=== PATIENT | female | born 1940 | race Caucasian/White ===

== ENCOUNTER 2017-04-15 13:33 | Inpatient (IN) ==
[2017-04-15] MEDS ORDERED: Acetaminophen 325 MG TABLET PO PRN (16:51)
[2017-04-15] MEDS: *HR* HYDROcodone/Acet 5/325 mg TABLET PO PRN ×2 (17:31→23:50)
[2017-04-15] MEDS: Sennosides/Docusate Sodium TABLET PO SCH (20:51)
[2017-04-16] MEDS: *HR* Enoxaparin 40 MG/0.4 ML SYRINGE SQ SCH (06:34)
[2017-04-16] MEDS: Sennosides/Docusate Sodium TABLET PO SCH ×2 (08:00→20:11)
[2017-04-16] MEDS ORDERED: Ascorbic Acid 500 MG TABLET PO SCH (09:00)
[2017-04-16] MEDS: *HR* HYDROcodone/Acet 5/325 mg TABLET PO PRN ×2 (14:29→20:13)
--- NOTE | 2017-04-16 15:09 | Internal Med History&Physical ---
Date of Encounter: 04/16/17 Time of Encounter: 14:40 Assessment and Plan (1) Patella fracture Current visit: No Status: Acute Will give scheduled analgesics in addition to prn analgesics. Advanced therapy as tolerated. Qualifiers: Encounter type: initial encounter Fracture type: closed Fracture morphology: unspecified fracture morphology Fracture alignment: displaced Laterality: right Qualified Code(s): S82.001A - Unspecified fracture of right patella, initial encounter for closed fracture (2) Proximal humeral fracture Current visit: No Status: Acute We will give analgesics as above and advance therapy as recommended by orthopedist. Qualifiers: Encounter type: initial encounter Fracture type: closed Fracture morphology: unspecified fracture morphology Laterality: right Qualified Code (s): S42.201A - Unspecified fracture of upper end of right humerus, initial encounter for closed fracture (3) HTN (hypertension) Current visit: No Status: Chronic Continue Lopressor and monitor blood pressures. Qualifiers: Hypertension type: essential hypertension Qualified Code(s): I10 - Essential (primary) hypertension (4) UTI (urinary tract infection) Current visit: No Status: Acute Urine culture shows Proteus with broad sensitivity. Continue Cipro and add lactobacillus. Qualifiers: Urinary tract infection type: site unspecified Qualified Code(s): N39.0 - Urinary tract infection, site not specified; R31.9 - Hematuria, unspecified; R31.9 - Hematuria, unspecified (5) Hyperglycemia Current visit: Yes Status: Acute Will check hemoglobin A1c in a.m. (6) Thrombocytopenia Current visit: Yes Status: Acute Review of archived lab shows thrombocytopenia present on all CBCs since December 2013. I note MPV is slightly enlarged. 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 Will continue to monitor labs without referral to hematology/oncology for now. Internal Medicine - H&P: HPI Chief complaint: Right humerus and patella fracture Admitted From: Hospital to Hospital Transfer Plans for Post Hospital Care: Home History of present illness: Ms. Silverio is a 76 year old female who was hospitalized at [facility] April 12 after experiencing a fall at home resulting in right patella and right proximal humerus fracture. She was treated nonoperatively and admitted to [facility] swing bed for ongoing therapy. Her muscle skeletal history is pertinent for DJD, right carpal tunnel syndrome surgery, and right wrist fracture repair. She has no known gout or other bone joint or muscle disorders. Past Med Surg Social Fam HX - Past Medical History Medical history: cancer, CVA, hypertension, migraine Psychiatric history: depression - Past Surgical History Surgical History: breast surgery, orthopedic, other, thyroidectomy - Social History Smoking Status: Never smoker Smokeless Tobacco Status: No Alcohol use: none Drug use: none - Family History Daughter Hx Family Endocrine Disorder: Yes Internal Medicine - H&P: Meds Meloxicam [Mobic] 7.5 mg PO Q12H PRN 09/11/15 [History] Atorvastatin [Lipitor] 40 mg PO HS 04/12/17 [History] BuPROPion [Wellbutrin] 75 mg PO BID 04/12/17 [History] Metoprolol [Lopressor] 50 mg PO BID 04/12/17 [History] Sertraline [Zoloft] 100 mg PO DAILY 04/12/17 [History] Acetaminophen [Tylenol] 650 mg PO Q6HR PRN tablet 04/15/17 [Rx] Ciprofloxacin HCl [Cipro] 500 mg PO BID 3 Days #6 tablet 04/15/17 [Rx] Enoxaparin [Lovenox] 40 mg SQ 0600 syringe 04/15/17 [Rx] HYDROcodone/Acet 5/325 mg [Phelps 5-325 mg] 1 tab PO Q4HR PRN #30 tablet [Rx] Sennosides/Docusate Sodium [Senna Plus] 1 each PO BID tablet 04/15/17 [Rx] 3 Allergy/AdvReac Type Severity Reaction Status Date / Time No Known Allergies Allergy Verified 01/11/15 11:28 All Systems PM: A 10-system review of systems was performed and is negative for pertinent findings except as documented above in the HPI. Review of systems: Gen.: She states her weight has been stable the past few months Cardiovascular: She has history of hypertension but denies [place] heart failure angina DVT or pulmonary embolus. She had an echocardiogram 2013 which showed LVEF 65% and indeterminate diastolic function. There is minimal LAE at 4.10 cm. Respiratory: She is a lifelong nonsmoker and has no known chronic lung disease GI: She denies disorders of her liver gallbladder or exocrine pancreas : She has urge incontinence. She states she has "dropped female organs" and wears a pessary occasionally. Neurologic: She had 1.5 cm left periventricular white matter infarct February 2014 with minimal permanent neurologic deficit. She denies seizures. Endocrine: She has hyperlipidemia but no known diabetes or thyroid disease Hematology/oncology: She had breast cancer 2000 right mastectomy which was curative. She has no anemia or other blood disorders Psychiatric: She has anxiety and depression denies other mental health issues Muscle skeletal: As per history of present illness. - Constitutional Vitals: Temp Pulse Resp BP Pulse Ox 98.3 F 72 24 136/76 95 04/16/17 06:38 04/16/17 14:27 04/16/17 14:27 04/16/17 14:27 04/16/17 14:27 Exam: Gen.: She is a well-developed well-nourished female who appears in no acute distress at rest. She complains of significant pain on minimal movement. HEENT: She has resolving ecchymosis and superficial lacerations of her right forehead area. Eyes: EOMI. There is no scleral icterus. Mouth: Mucosa is moist. Neck: Supple and nontender. There is no thyromegaly or adenopathy noted. Heart: Regular without murmurs gallops or ectopics Lungs: No wheezes or crackles are heard. Abdomen: Soft and nontender. No masses or guarding are noted. Extremities: The right arm is in an immobilizer sling. The right leg is an immobilizer brace. There is ecchymoses of the right patellar area visible through the straps. Dorsalis pedis and posterior tibial pulses are trace to 1+ palpable bilaterally. She is wearing a NATALEE hose on her left lower leg which I did not remove. She has minimal DJD changes of her left hand. Neurologic: Mental status: She is talkative and a good historian. Cranial nerves: Smile is symmetric. Forehead wrinkles bilaterally. Tongue protrudes midline. EOMI. Motor: There is no pronator drift. Cerebellar: finger to nose is intact bilaterally. Skin: Warm and dry - VTE Documentation of Mechanical Device: Intermittent pneumatic compression device
[2017-04-16] MEDS ORDERED: *HR* FentaNYL PATCH 12 MCG PATCH TD SCH (15:30)
[2017-04-16] MEDS ORDERED: MOM Conc 10 ML UD.LIQ PO SCH (15:30)
[2017-04-16] MEDS: Acetaminophen 325 MG TABLET PO SCH ×2 (17:10→23:56)
[2017-04-17] MEDS: Acetaminophen 325 MG TABLET PO SCH ×3 (04:47→17:39)
[2017-04-17] MEDS: *HR* HYDROcodone/Acet 5/325 mg TABLET PO PRN (04:48)
[2017-04-17] MEDS: *HR* Enoxaparin 40 MG/0.4 ML SYRINGE SQ SCH (04:49)
[2017-04-17 05:39] LABS: Basophils % 0.2 %; Eosinophils # 0.2 K/mcL (0.0-0.6); Hematocrit 36.2 % (35.3-44.9); Hemoglobin 11.6 g/dL (11.5-15.4); Immature Granulocytes % 0.2 % (0-4); Lymphocytes # 1.4 K/mcL (0.6-4.6); Lymphocytes % 24.7 %; Mean Corpuscular Hemoglobin 28.4 pg (28.0-33.3); Mean Corpuscular Volume 88.5 fL (83.0-100.0); Mean Platelet Volume 12.1 fL (9.4-12.4); Monocytes # 0.5 K/mcL (0.0-1.3); Monocytes % 8.6 %; Neutrophils # 3.4 K/mcL (1.6-8.9); Platelet Count 110 K/mcL (140-400); Red Blood Count 4.09 M/mcL (3.82-4.97); Red Cell Distribution Width 14.9 % (11.5-14.5); Segmented Neutrophils % 62.3 %
[2017-04-17 05:57] LABS: BUN/Creatinine Ratio 35 (6-26); Blood Urea Nitrogen 22 mg/dL (8-23); Calcium 8.9 mg/dL (8.6-10.3); Carbon Dioxide 28 mEq/L (23-29); Chloride 105 mEq/L (98-107); Glucose 106 mg/dL (70-105); Osmolality,Calculated 294 (280-300); Sodium 140 mEq/L (136-145); eGFR For African Americans > 60 (> 60); eGFR For Non-African Americans > 60 (> 60)
[2017-04-17] MEDS: Sennosides/Docusate Sodium TABLET PO SCH ×2 (07:56→20:19)
[2017-04-17 09:53] LABS: Hemoglobin A1C 5.1 %
--- NOTE | 2017-04-17 10:29 | Internal Med Progress Note ---
Date of Encounter: 04/17/17 Time of Encounter: 10:20 - Assessment and plan (1) Patella fracture Current Visit: No Status: Acute Assessment and plan: April 17. Continue present analgesic regimen. Continue therapy. Qualifiers: Encounter type: initial encounter Fracture type: closed Fracture morphology: unspecified fracture morphology Fracture alignment: displaced Laterality: right Qualified Code(s): S82.001A - Unspecified fracture of right patella, initial encounter for closed fracture (2) Proximal humeral fracture Current Visit: No Status: Acute Assessment and plan: April 17. Continue present analgesic regimen. Continue therapy. Qualifiers: Encounter type: initial encounter Fracture type: closed Fracture morphology: unspecified fracture morphology Laterality: right Qualified Code (s): S42.201A - Unspecified fracture of upper end of right humerus, initial encounter for closed fracture (3) HTN (hypertension) Current Visit: No Status: Chronic Assessment and plan: April 17. Continue Lopressor and monitor blood pressure. Qualifiers: Hypertension type: essential hypertension Qualified Code(s): I10 - Essential (primary) hypertension (4) UTI (urinary tract infection) Current Visit: No Status: Acute Assessment and plan: April 17. Discontinue Cipro and lactobacillus since she has now completed a three-day course Qualifiers: Urinary tract infection type: site unspecified Qualified Code(s): N39.0 - Urinary tract infection, site not specified; R31.9 - Hematuria, unspecified; R31.9 - Hematuria, unspecified (5) Hyperglycemia Current Visit: Yes Status: Acute Assessment and plan: April 17. Hemoglobin A1c acceptable at 5.1%. (6) Thrombocytopenia Current Visit: Yes Status: Acute Assessment and plan: April 17. Platelet count stable at 110,000. - Subjective Interval history: April 17. She has no new complaints. - Constitutional Vitals: Temp Pulse Resp BP Pulse Ox 98.4 F 60 18 135/70 95 04/17/17 06:27 04/17/17 08:02 04/17/17 06:27 04/17/17 08:02 04/17/17 08:02 Exam: She is resting comfortably in bed and appears in no acute distress. Her affect is bright and cheerful. I reviewed her medications and lab results. Internal Medicine: Result - Labs CBC & Chem 7: 04/17/17 05:03 04/17/17 05:03 Labs: Short CBC 04/17/17 Range/Units 05:03 WBC 5.5 (4.3-11.1) K/mcL Hgb 11.6 (11.5-15.4) g/dL Hct 36.2 (35.3-44.9) % Plt Count 110 L (140-400) K/mcL Neutrophils # 3.4 (1.6-8.9) K/mcL BMP 04/17/17 05:03 Sodium 140 Potassium 4.0 Chloride 105 Carbon Dioxide 28 BUN 22 Creatinine 0.62 Glucose 106 H Calcium 8.9 - VTE Documentation of Mechanical Device: Intermittent pneumatic compression device Consult Discharge Plan - Plan Referrals: Felipe Cerrato DO [Primary Care Provider] - 1 week
[2017-04-18] MEDS: Acetaminophen 325 MG TABLET PO SCH ×5 (01:55→22:50)
[2017-04-18] MEDS: *HR* HYDROcodone/Acet 5/325 mg TABLET PO PRN ×2 (04:06→22:50)
[2017-04-18] MEDS: *HR* Enoxaparin 40 MG/0.4 ML SYRINGE SQ SCH (04:24)
[2017-04-18] MEDS: Sennosides/Docusate Sodium TABLET PO SCH ×2 (08:31→20:34)
[2017-04-18] MEDS ORDERED: MOM Conc 10 ML UD.LIQ PO PRN (10:37)
--- NOTE | 2017-04-18 12:10 | Internal Med Progress Note ---
Date of Encounter: 04/18/17 Time of Encounter: 12:04 - Assessment and plan (1) Patella fracture Current Visit: No Status: Acute Assessment and plan: April 17. Continue present analgesic regimen. Continue therapy. Qualifiers: Encounter type: initial encounter Fracture type: closed Fracture morphology: unspecified fracture morphology Fracture alignment: displaced Laterality: right Qualified Code(s): S82.001A - Unspecified fracture of right patella, initial encounter for closed fracture (2) Proximal humeral fracture Current Visit: No Status: Acute Assessment and plan: April 17. Continue present analgesic regimen. Continue therapy. Qualifiers: Encounter type: initial encounter Fracture type: closed Fracture morphology: unspecified fracture morphology Laterality: right Qualified Code (s): S42.201A - Unspecified fracture of upper end of right humerus, initial encounter for closed fracture (3) HTN (hypertension) Current Visit: No Status: Chronic Assessment and plan: April 17. Continue Lopressor and monitor blood pressure. April 18. Blood pressures are satisfactory. Continue Lopressor. Qualifiers: Hypertension type: essential hypertension Qualified Code(s): I10 - Essential (primary) hypertension (4) UTI (urinary tract infection) Current Visit: No Status: Acute Assessment and plan: April 17. Discontinue Cipro and lactobacillus since she has now completed a three-day course Qualifiers: Urinary tract infection type: site unspecified Qualified Code(s): N39.0 - Urinary tract infection, site not specified; R31.9 - Hematuria, unspecified; R31.9 - Hematuria, unspecified (5) Hyperglycemia Current Visit: Yes Status: Acute Assessment and plan: April 17. Hemoglobin A1c acceptable at 5.1%. (6) Thrombocytopenia Current Visit: Yes Status: Acute Assessment and plan: April 17. Platelet count stable at 110,000. - Subjective Interval history: April 17. She has no new complaints. April 18. She has no new complaints and states her pain is slightly less. - Constitutional Vitals: Temp Pulse Resp BP Pulse Ox 98.3 F 65 16 127/74 94 04/17/17 18:43 04/18/17 08:29 04/17/17 18:43 04/18/17 08:29 04/17/17 18:43 Exam: She is resting comfortably in bed and appears in no acute distress. Her affect is bright and cheerful. I reviewed her medications and lab results. Internal Medicine: Result - Labs CBC & Chem 7: 04/17/17 05:03 04/17/17 05:03 - VTE Documentation of Mechanical Device: Intermittent pneumatic compression device Consult Discharge Plan - Plan Referrals: Felipe Cerrato DO [Primary Care Provider] - 1 week
[2017-04-19] MEDS: Acetaminophen 325 MG TABLET PO SCH ×3 (06:15→20:39)
[2017-04-19] MEDS: *HR* Enoxaparin 40 MG/0.4 ML SYRINGE SQ SCH (06:16)
[2017-04-19] MEDS: Sennosides/Docusate Sodium TABLET PO SCH ×2 (08:00→20:40)
[2017-04-19] MEDS: *HR* HYDROcodone/Acet 5/325 mg TABLET PO PRN ×2 (08:00→20:40)
[2017-04-19] MEDS: *HR* FentaNYL PATCH 12 MCG PATCH TD SCH (12:33)
[2017-04-20] MEDS: Acetaminophen 325 MG TABLET PO SCH ×4 (06:10→18:13)
[2017-04-20] MEDS: *HR* Enoxaparin 40 MG/0.4 ML SYRINGE SQ SCH (06:11)
[2017-04-20] MEDS: Sennosides/Docusate Sodium TABLET PO SCH ×2 (08:36→21:32)
[2017-04-20] MEDS: *HR* HYDROcodone/Acet 5/325 mg TABLET PO PRN ×3 (08:36→21:31)
--- NOTE | 2017-04-20 19:59 | Internal Med Progress Note ---
Date of Encounter: 04/20/17 Time of Encounter: 19:50 - Assessment and plan (1) Patella fracture Current Visit: No Status: Acute Assessment and plan: April 17. Continue present analgesic regimen. Continue therapy. Qualifiers: Encounter type: initial encounter Fracture type: closed Fracture morphology: unspecified fracture morphology Fracture alignment: displaced Laterality: right Qualified Code(s): S82.001A - Unspecified fracture of right patella, initial encounter for closed fracture (2) Proximal humeral fracture Current Visit: No Status: Acute Assessment and plan: April 17. Continue present analgesic regimen. Continue therapy. Qualifiers: Encounter type: initial encounter Fracture type: closed Fracture morphology: unspecified fracture morphology Laterality: right Qualified Code (s): S42.201A - Unspecified fracture of upper end of right humerus, initial encounter for closed fracture (3) HTN (hypertension) Current Visit: No Status: Chronic Assessment and plan: April 17. Continue Lopressor and monitor blood pressure. April 18. Blood pressures are satisfactory. Continue Lopressor. Qualifiers: Hypertension type: essential hypertension Qualified Code(s): I10 - Essential (primary) hypertension (4) UTI (urinary tract infection) Current Visit: No Status: Acute Assessment and plan: April 17. Discontinue Cipro and lactobacillus since she has now completed a three-day course Qualifiers: Urinary tract infection type: site unspecified Qualified Code(s): N39.0 - Urinary tract infection, site not specified; R31.9 - Hematuria, unspecified; R31.9 - Hematuria, unspecified (5) Hyperglycemia Current Visit: Yes Status: Acute Assessment and plan: April 17. Hemoglobin A1c acceptable at 5.1%. (6) Thrombocytopenia Current Visit: Yes Status: Acute Assessment and plan: April 17. Platelet count stable at 110,000. - Subjective Interval history: April 17. She has no new complaints. April 18. She has no new complaints and states her pain is slightly less. April 20. She has no new complaints. - Constitutional Vitals: Temp Pulse Resp BP Pulse Ox 98.4 F 63 18 147/88 94 04/20/17 07:37 04/20/17 07:37 04/20/17 07:37 04/20/17 07:37 04/20/17 07:37 Exam: She is resting comfortably in bed and appears in no acute distress. Her affect is bright and cheerful. She answers questions appropriately with short answers. Legs show no edema. I reviewed her medications and lab results. Internal Medicine: Result - Labs CBC & Chem 7: 04/17/17 05:03 04/17/17 05:03 - VTE Documentation of Mechanical Device: Intermittent pneumatic compression device Consult Discharge Plan - Plan Referrals: Felipe Cerrato DO [Primary Care Provider] - 1 week
[2017-04-21] MEDS: Acetaminophen 325 MG TABLET PO SCH ×4 (00:03→17:46)
[2017-04-21] MEDS: *HR* Enoxaparin 40 MG/0.4 ML SYRINGE SQ SCH (06:41)
[2017-04-21] MEDS: Sennosides/Docusate Sodium TABLET PO SCH (09:24)
[2017-04-21] MEDS: *HR* HYDROcodone/Acet 5/325 mg TABLET PO PRN (14:49)
[2017-04-22] MEDS: Acetaminophen 325 MG TABLET PO SCH ×4 (01:17→20:19)
[2017-04-22] MEDS: *HR* Enoxaparin 40 MG/0.4 ML SYRINGE SQ SCH (06:49)
[2017-04-22] MEDS: Sennosides/Docusate Sodium TABLET PO SCH (10:13)
[2017-04-22] MEDS: *HR* FentaNYL PATCH 12 MCG PATCH TD SCH (16:04)
[2017-04-23] MEDS: Acetaminophen 325 MG TABLET PO SCH ×4 (06:38→17:50)
[2017-04-23] MEDS: *HR* Enoxaparin 40 MG/0.4 ML SYRINGE SQ SCH (06:39)
[2017-04-23] MEDS: Sennosides/Docusate Sodium TABLET PO SCH (09:27)
[2017-04-23] MEDS: *HR* HYDROcodone/Acet 5/325 mg TABLET PO PRN ×2 (15:53→21:27)
[2017-04-24] MEDS: Acetaminophen 325 MG TABLET PO SCH ×4 (01:02→17:33)
[2017-04-24] MEDS: *HR* Enoxaparin 40 MG/0.4 ML SYRINGE SQ SCH (06:45)
[2017-04-24] MEDS: Sennosides/Docusate Sodium TABLET PO SCH (09:19)
--- NOTE | 2017-04-24 15:00 | Internal Med Progress Note ---
Date of Encounter: 04/24/17 Time of Encounter: 14:50 - Assessment and plan (1) Patella fracture Current Visit: No Status: Acute Assessment and plan: April 17. Continue present analgesic regimen. Continue therapy. Qualifiers: Encounter type: initial encounter Fracture type: closed Fracture morphology: unspecified fracture morphology Fracture alignment: displaced Laterality: right Qualified Code(s): S82.001A - Unspecified fracture of right patella, initial encounter for closed fracture (2) Proximal humeral fracture Current Visit: No Status: Acute Assessment and plan: April 17. Continue present analgesic regimen. Continue therapy. Qualifiers: Encounter type: initial encounter Fracture type: closed Fracture morphology: unspecified fracture morphology Laterality: right Qualified Code (s): S42.201A - Unspecified fracture of upper end of right humerus, initial encounter for closed fracture (3) HTN (hypertension) Current Visit: No Status: Chronic Assessment and plan: April 17. Continue Lopressor and monitor blood pressure. April 18. Blood pressures are satisfactory. Continue Lopressor. Qualifiers: Hypertension type: essential hypertension Qualified Code(s): I10 - Essential (primary) hypertension (4) UTI (urinary tract infection) Current Visit: No Status: Acute Assessment and plan: April 17. Discontinue Cipro and lactobacillus since she has now completed a three-day course Qualifiers: Urinary tract infection type: site unspecified Qualified Code(s): N39.0 - Urinary tract infection, site not specified; R31.9 - Hematuria, unspecified; R31.9 - Hematuria, unspecified (5) Hyperglycemia Current Visit: Yes Status: Acute Assessment and plan: April 17. Hemoglobin A1c acceptable at 5.1%. (6) Thrombocytopenia Current Visit: Yes Status: Acute Assessment and plan: April 17. Platelet count stable at 110,000. - Subjective Interval history: April 17. She has no new complaints. April 18. She has no new complaints and states her pain is slightly less. April 20. She has no new complaints. April 24. She has no new complaints and states she feels better overall. - Constitutional Vitals: Temp Pulse Resp BP Pulse Ox 98.2 F 63 14 129/66 93 04/24/17 06:52 04/24/17 06:52 04/24/17 06:52 04/24/17 06:52 04/24/17 06:52 Exam: She is resting in bed and appears in no acute distress. Her affect is bright and cheerful. She is appropriate in conversation. I reviewed her medications and lab results. Internal Medicine: Result - Labs CBC & Chem 7: 04/17/17 05:03 04/17/17 05:03 - VTE Documentation of Mechanical Device: Intermittent pneumatic compression device Consult Discharge Plan - Plan Referrals: Felipe Cerrato DO [Primary Care Provider] - 1 week
[2017-04-25] MEDS: Acetaminophen 325 MG TABLET PO SCH ×4 (06:51→18:39)
[2017-04-25] MEDS: *HR* Enoxaparin 40 MG/0.4 ML SYRINGE SQ SCH (06:51)
[2017-04-25] MEDS: Sennosides/Docusate Sodium TABLET PO SCH (08:36)
[2017-04-25] MEDS: *HR* FentaNYL PATCH 12 MCG PATCH TD SCH (13:21)
[2017-04-26] MEDS: Acetaminophen 325 MG TABLET PO SCH ×4 (06:49→17:36)
[2017-04-26] MEDS: *HR* Enoxaparin 40 MG/0.4 ML SYRINGE SQ SCH (06:49)
[2017-04-26] MEDS: Sennosides/Docusate Sodium TABLET PO SCH (09:26)
[2017-04-27 05:17] LABS: Basophils % 0.4 %; Eosinophils # 0.2 K/mcL (0.0-0.6); Eosinophils % 4.4 %; Hematocrit 35.3 % (35.3-44.9); Hemoglobin 11.4 g/dL (11.5-15.4); Immature Granulocytes % 0.2 % (0-4); Lymphocytes # 1.5 K/mcL (0.6-4.6); Lymphocytes % 30.6 %; Mean Corpuscular HGB Conc 32.3 g/dL (31.6-35.5); Mean Corpuscular Hemoglobin 28.7 pg (28.0-33.3); Mean Corpuscular Volume 88.9 fL (83.0-100.0); Mean Platelet Volume 12.4 fL (9.4-12.4); Monocytes # 0.3 K/mcL (0.0-1.3); Monocytes % 7.1 %; Neutrophils # 2.7 K/mcL (1.6-8.9); Platelet Count 160 K/mcL (140-400); Red Blood Count 3.97 M/mcL (3.82-4.97); Red Cell Distribution Width 14.6 % (11.5-14.5); Segmented Neutrophils % 57.3 %
[2017-04-27 05:36] LABS: BUN/Creatinine Ratio 31 (6-26); Blood Urea Nitrogen 24 mg/dL (8-23); Carbon Dioxide 29 mEq/L (23-29); Chloride 104 mEq/L (98-107); Glucose 86 mg/dL (70-105); Osmolality,Calculated 287 (280-300); Potassium 3.8 mEq/L (3.5-5.1); Sodium 137 mEq/L (136-145); eGFR For African Americans > 60 (> 60); eGFR For Non-African Americans > 60 (> 60)
[2017-04-27] MEDS: Acetaminophen 325 MG TABLET PO SCH ×4 (06:38→17:17)
[2017-04-27] MEDS: *HR* Enoxaparin 40 MG/0.4 ML SYRINGE SQ SCH (06:40)
[2017-04-27] MEDS: Sennosides/Docusate Sodium TABLET PO SCH (08:28)
--- NOTE | 2017-04-27 14:26 | Internal Med Progress Note ---
Date of Encounter: 04/27/17 Time of Encounter: 14:15 - Assessment and plan (1) Patella fracture Current Visit: No Status: Acute Assessment and plan: April 17. Continue present analgesic regimen. Continue therapy. April 27. Continue present therapy and analgesic regimen. Anticipate discharge to [facility] in 1-2 days Qualifiers: Encounter type: initial encounter Fracture type: closed Fracture morphology: unspecified fracture morphology Fracture alignment: displaced Laterality: right Qualified Code(s): S82.001A - Unspecified fracture of right patella, initial encounter for closed fracture (2) Proximal humeral fracture Current Visit: No Status: Acute Assessment and plan: April 17. Continue present analgesic regimen. Continue therapy. Qualifiers: Encounter type: initial encounter Fracture type: closed Fracture morphology: unspecified fracture morphology Laterality: right Qualified Code (s): S42.201A - Unspecified fracture of upper end of right humerus, initial encounter for closed fracture (3) HTN (hypertension) Current Visit: No Status: Chronic Assessment and plan: April 17. Continue Lopressor and monitor blood pressure. April 18. Blood pressures are satisfactory. Continue Lopressor. Qualifiers: Hypertension type: essential hypertension Qualified Code(s): I10 - Essential (primary) hypertension (4) Hyperglycemia Current Visit: Yes Status: Acute Assessment and plan: April 17. Hemoglobin A1c acceptable at 5.1%. (5) Thrombocytopenia Current Visit: Yes Status: Acute Assessment and plan: April 17. Platelet count stable at 110,000. April 27. Platelet count normalized to 160,000. - Subjective Interval history: April 17. She has no new complaints. April 18. She has no new complaints and states her pain is slightly less. April 20. She has no new complaints. April 24. She has no new complaints and states she feels better overall. April 27. She has no new complaints. - Constitutional Vitals: Temp Pulse Resp BP Pulse Ox 98.5 F 65 16 118/68 91 04/26/17 19:17 04/27/17 08:27 04/27/17 08:27 04/27/17 08:27 04/27/17 08:27 Exam: She is sitting in a chair at bedside resting comfortably. Her affect is bright and cheerful. Extremities show no edema. She is wearing a right arm sling and right knee immobilizer. I reviewed her medications and lab results. Internal Medicine: Result - Labs CBC & Chem 7: 02/07/18 04:32 04/27/17 04:32 Labs: Short CBC 04/27/17 Range/Units 04:32 WBC 4.8 (4.3-11.1) K/mcL Hgb 11.4 L (11.5-15.4) g/dL Hct 35.3 (35.3-44.9) % Plt Count 160 (140-400) K/mcL Neutrophils # 2.7 (1.6-8.9) K/mcL BMP 04/27/17 04:32 Sodium 137 Potassium 3.8 Chloride 104 Carbon Dioxide 29 BUN 24 H Creatinine 0.78 Glucose 86 Calcium 9.0 - VTE Documentation of Mechanical Device: Intermittent pneumatic compression device Consult Discharge Plan - Plan Referrals: Felipe Cerrato DO [Primary Care Provider] - 1 week
[2017-04-28] MEDS: Acetaminophen 325 MG TABLET PO SCH ×3 (05:36→13:03)
[2017-04-28] MEDS: *HR* Enoxaparin 40 MG/0.4 ML SYRINGE SQ SCH (05:37)
[2017-04-28 06:58] VITALS: BP 139/67
[2017-04-28] MEDS: Sennosides/Docusate Sodium TABLET PO SCH (08:22)
[2017-04-28] MEDS: *HR* FentaNYL PATCH 12 MCG PATCH TD SCH (08:23)
--- NOTE | 2017-04-28 11:11 | Discharge Summary ---
Date of Encounter: 04/28/17 Time of Encounter: 11:00 - Discharge Diagnosis (1) Patella fracture Priority: Primary Status: Acute Qualifiers: Encounter type: initial encounter Fracture type: closed Fracture morphology: unspecified fracture morphology Fracture alignment: displaced Laterality: right Qualified Code(s): S82.001A - Unspecified fracture of right patella, initial encounter for closed fracture (2) Proximal humeral fracture Priority: Secondary Status: Acute Qualifiers: Encounter type: initial encounter Fracture type: closed Fracture morphology: unspecified fracture morphology Laterality: right Qualified Code (s): S42.201A - Unspecified fracture of upper end of right humerus, initial encounter for closed fracture (3) HTN (hypertension) Priority: Secondary Status: Chronic Qualifiers: Hypertension type: essential hypertension Qualified Code(s): I10 - Essential (primary) hypertension (4) Hyperglycemia Priority: Secondary Status: Acute (5) Thrombocytopenia Priority: Secondary Status: Resolved - Discharge Medications Home Medications: Atorvastatin [Lipitor] 40 mg PO HS 04/12/17 [History] BuPROPion [Wellbutrin] 75 mg PO BID 04/12/17 [History] Metoprolol [Lopressor] 50 mg PO BID 04/12/17 [History] Sertraline [Zoloft] 100 mg PO DAILY 04/12/17 [History] Sennosides/Docusate Sodium [Senna Plus] 1 each PO BID tablet 04/15/17 [Rx] Acetaminophen [Tylenol] 650 mg PO Q6HR #0 tablet 04/28/17 [Rx] HYDROcodone/Acet 5/325 mg [[place] 5-325 mg] 1 tab PO Q4HR PRN 7 Days #28 tablet 04/28/17 [Rx] MOM Conc [MILK OF MAGNESIA conc] 10 ml PO DAILY PRN ud.liq 04/28/17 [Rx] Sennosides/Docusate Sodium [Senna Plus] 1 each PO DAILY tablet 04/28/17 [Rx] Allergies/Adverse Reactions: 3 Allergy/AdvReac Type Severity Reaction Status Date / Time No Known Allergies Allergy Verified 01/11/15 11:28 Date of admission: 04/15/17 15:42 Primary care physician: Felipe Cerrato DO Consults: 04/15/17 16:39 PT [Consult to Physical Therapy] [CONS] Routine Comment: Evaluate, develop and implement POC Reason for Consult: evaluate,develop poc, and implement poc 04/15/17 16:40 OT [Consult to Occupational Therapy] [CONS] Routine Comment: Evaluate, develop and implement POC Reason for Consult: joe, develop poc, and implement poc 04/15/17 17:25 Consult to Clinical Molecular Geneticist [CONS] Routine Reason for SW Consult: New admission to swing bed. - Patient Status Disposition: Transfer SNF Functional capacity at discharge: uses cane/walker Overall status at discharge: patient is progressing back to baseline - Discharge Instructions - Diet and Activity Activity: as per physical therapy Diet: advance to your usual diet Hospital course: Ms. Silverio is a 76 year old female who was hospitalized at [facility] April 12- after experiencing a fall at home resulting in right patella and right proximal humerus fracture. She was treated nonoperatively and admitted to [facility] swing bed for ongoing therapy. Initial orders were written by the discharging physicians at [facility]. I saw her on April 16 and performed the swing bed history and physical. She was given scheduled and prn analgesics. She had physical therapy and occupational therapy evaluations with ongoing interventions. She made satisfactory progress in therapy but it was felt she would need longer term therapy interventions. Arrangements were completed on April 28 for her to be discharged to [facility] for continued therapy. She will follow with me there. Follow-up lab work showed platelet count normalized to 160 K on 04/27/2017. Hemoglobin A1c returned acceptable at 5.1%. Vitamin D level was normal at 37. - Time Spent with Patient Total time spent providing and/or coordinating discharge services: - Constitutional Vitals: Temp Pulse Resp BP Pulse Ox 97.9 F 60 18 139/67 98 04/28/17 06:55 04/28/17 06:55 04/28/17 06:55 04/28/17 06:55 04/28/17 06:55 - VTE Documentation of Mechanical Device: Intermittent pneumatic compression device
--- NOTE | 2017-04-28 11:17 | Physician Discharge Referral ---
ExtendedCare Referral Info Transfer To: [facility] Provider in Charge: Albert Provider in Charge after Transfer: PCP Billy) Institutional Level of Care: Skilled - Diagnosis (1) Patella fracture Priority: Primary Status: Acute (2) Proximal humeral fracture Priority: Secondary Status: Acute (3) HTN (hypertension) Priority: Secondary Status: Chronic (4) Hyperglycemia Priority: Secondary Status: Acute (5) Thrombocytopenia Priority: Secondary Status: Resolved Prognosis: Good Aware of Diagnosis: Patient, Family Aware of Prognosis: Patient, Family - Transfer Medications Home Medications: Atorvastatin [Lipitor] 40 mg PO HS 04/12/17 [History] BuPROPion [Wellbutrin] 75 mg PO BID 04/12/17 [History] Metoprolol [Lopressor] 50 mg PO BID 04/12/17 [History] Sertraline [Zoloft] 100 mg PO DAILY 04/12/17 [History] Sennosides/Docusate Sodium [Senna Plus] 1 each PO BID tablet 04/15/17 [Rx] Acetaminophen [Tylenol] 650 mg PO Q6HR #0 tablet 04/28/17 [Rx] HYDROcodone/Acet 5/325 mg [[place] 5-325 mg] 1 tab PO Q4HR PRN 7 Days #28 tablet 04/28/17 [Rx] MOM Conc [MILK OF MAGNESIA conc] 10 ml PO DAILY PRN ud.liq 04/28/17 [Rx] Sennosides/Docusate Sodium [Senna Plus] 1 each PO DAILY tablet 04/28/17 [Rx] Allergies/Adverse Reactions: 3 Allergy/AdvReac Type Severity Reaction Status Date / Time No Known Allergies Allergy Verified 01/11/15 11:28 - Respiratory Orders Smoking Cessation: Smoking cessation has been advised. For more information, call the [place] Tobacco Quit Line at 0-768-WYGG-NOW. - Rehabiliation Orders Rehab Potential: Good Rehab Orders: Evaluation for Physical Therapy, Evaluation for Occupational Therapy - Diet Orders Regular CERTIFICATION: I certify that the transfer of the above named patient to an Extended Care Facility is necessary for the continuing treatment of the diagnosis listed. The above information is true and accurate reflection of patient's current condition. Confidential - Redisclosure prohibited without a patient's written consent.
== END 2017-04-28 13:40 | DRG 560 ==
LOC: INPPIK 15:42
PROVIDERS: ADMIT Internal Medicine; ATTEND Internal Medicine